=== PATIENT | female | born 1970 | race Caucasian/White ===

== ENCOUNTER 2022-05-09 13:45 | Emergency (ER) | payer MEDICAID, OTHER ==
[~2022-05-09] VITALS: Ht 154.9 cm; Wt 54.9 kg
[2022-05-09 14:02] VITALS: BP 105/60
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
[2022-05-09] MEDS ORDERED: LIDOCAINE 5% (PATCH) 1 EA PATCH TP SCH (15:00)
[2022-05-09] MEDS ORDERED: CYCLOBENZAPRINE 10 MG TABLET PO ONE (15:00)
[2022-05-09] MEDS ORDERED: CYCLOBENZAPRINE 10 MG TABLET ONE (15:09)
[2022-05-09] MEDS ORDERED: LIDO700A30 TP (16:24)
[2022-05-09] MEDS ORDERED: IBUP-1953 PO (16:24)
--- NOTE | 2022-05-09 16:33 | NUR ---
OKAY FOR PT TO HAVE CD OF IMAGING STUDIES; ORDER NOTED.
--- NOTE | 2022-05-09 17:00 | NUR ---
Patient discharged to home in stable condition. Written and verbal after care instructions given. Patient verbalizes understanding of instruction.
== END 2022-05-09 17:55 | disposition home or self-care (01) ==
LOC: ER 13:58
DX: S30.0XXA Contusion of lower back and pelvis, initial encounter (principal); F41.9 Anxiety disorder, unspecified; F17.200 Nicotine dependence, unspecified, uncomplicated; Z90.89 Acquired absence of other organs; V49.49XA Driver injured in collision with other motor vehicles in traffic accident, initial encounter; Y93.89 Activity, other specified; Y92.413 State road as the place of occurrence of the external cause; Y99.8 Other external cause status
CPT/HCPCS: 72131-TC; 72192-TC